=== PATIENT | male | born 1985 | race Caucasian/White ===

== ENCOUNTER → 2017-03-08 | Outpatient (CLI) | payer OTHER ==
--- NOTE | 2017-03-08 16:39 | DIAGNOSTIC IMAGING REPORT ---
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 Positive KAYLIE. Left ankle pain. COMPARISON: None. DISCUSSION: No acute fractures or dislocations are visualized. There is an equivocal tiny osteochondral defect arising from the talar dome. IMPRESSION: Equivocal 2 mm osteochondral defect arising from the talar dome. Otherwise unremarkable conventional radiographic evaluation of the left ankle. Electronically signed by: Attila Ely M.D. 03/08/2017 4:37 PM Dictated Date/Time: 03/08/2017 4:36 PM
--- NOTE | 2017-03-08 16:40 | DIAGNOSTIC IMAGING REPORT ---
R HAND MIN 3 VIEWS ROUTINE CLINICAL HISTORY: 31 years-old Male presenting with R76.8 Positive KAYLIE (antinuclear antibody)[id number]. TECHNIQUE: Frontal, oblique, and lateral views of the right hand were obtained. COMPARISON: None. FINDINGS: No acute fracture or malalignment. No degenerative change. No radiographic evidence of soft tissue swelling. IMPRESSION: No acute osseous injury or arthritic change of the right hand. Electronically signed by: Luis Guerra M.D. 03/08/2017 4:39 PM Dictated Date/Time: 03/08/2017 4:37 PM
--- NOTE | 2017-03-08 16:53 | DIAGNOSTIC IMAGING REPORT ---
SI JOINTS 3 OR MORE VIEWS CLINICAL HISTORY: 31 years-old Male presenting with R76.8 Positive KAYLIE (antinuclear antibody)[id number]. TECHNIQUE: Frontal and bilateral oblique views of the sacroiliac joints were obtained. COMPARISON: None. FINDINGS: Sacroiliac joints congruent. No widening or effusion. No degenerative change evident radiographically. No acute fracture of the sacrum. IMPRESSION: Normal radiographs of the sacroiliac joints. Electronically signed by: Luis Guerra M.D. 03/08/2017 4:51 PM Dictated Date/Time: 03/08/2017 4:50 PM
[2017-03-08 17:49] LABS: C-REACTIVE PROTEIN 0.79 mg/dl (0-0.29)
[2017-03-11 23:28] LABS: HLA-B27** TC 528X NEGATIVE (NEGATIVE); PARVOVIRUS IgG INDEX 3.9 (<0.9); PARVOVIRUS IgM INDEX 0.1 (<0.9)
== END | disposition home or self-care (01) ==
LOC: C.RAD1850 15:23
PROVIDERS: ATTEND Internal Medicine Rheumatology
DX: M13.0 Polyarthritis, unspecified (principal); R76.8 Other specified abnormal immunological findings in serum